=== PATIENT | male | born 1985 | race Caucasian/White ===

== ENCOUNTER 2023-06-08 18:39 | Emergency (ER) | payer BC, SELFPAY ==
[2023-06-08 18:47] VITALS: BP 127/87; PULSE 81; RESP 16; TEMP 36.8; O2SAT 99
--- NOTE | 2023-06-08 18:49 | ED.SKABFB ---
HPI - Skin/Abscess/Foreign Bdy General Chief complaint: Skin/Abscess/Foreign Body Stated complaint: Rash Time Seen by Provider: 06/08/23 18:49 Source: patient, RN notes reviewed and old records reviewed Mode of arrival: ambulatory Limitations: no limitations History of Present Illness HPI narrative: 37-year-old male presents to the [facility] with complaints of a rash for the last 1 and half weeks your kid has been using hot showers, used [id number] treatments with cream, aloe, Benadryl with minimal to no relief. Area to the medial left leg his now become red, warm. Related Data Home Medications Medication Instructions Recorded Confirmed loratadine 10 mg tablet (Claritin) 10 mg PO DAILY 06/08/23 06/08/23 Allergies Allergy/AdvReac Type Severity Reaction Status Date / Time acetaminophen [From Percocet] Allergy Rash Verified 06/08/23 18:55 codeine Allergy Rash Verified 06/08/23 18:55 oxycodone [From Percocet] Allergy Rash Verified 06/08/23 18:55 Review of Systems Review of Systems: All systems reviewed & are unremarkable except as noted in HPI and below Constitutional: Constitutional: Reports no additional constitutional complaints Eyes: Eyes: Reports no additional eye complaints ENT: Reports system reviewed and no additional complaints, except as documented Cardiovascular: Cardiovascular: Reports no additional cardiovascular complaints, Denies chest pain and Denies dyspnea Respiratory: Respiratory: Reports no additional respiratory complaints, Denies chest congestion, Denies cough and Denies dyspnea Gastrointestinal: Gastrointestinal: Reports no additional gastrointestinal complaints, Denies abdominal pain, Denies nausea and Denies vomiting Musculoskeletal: Musculoskeletal: Reports no additional musculoskeletal complaints Integumentary/Breasts: Skin/Breast: Reports as per HPI Neurologic: Reports system reviewed and no additional complaints, except as documented Psychiatric: Psychiatric: Reports no additional psychiatric complaints Allergic/Immunologic: Allergic/Immunologic: Reports no additional allergic/immunologic complaints PMFSH Comments At the time of my signature, I reviewed and agree with the nursing past medical, surgical, social, and family history. There is no relevant family history pertinent to the patient complaint. Exam Const: General: cooperative, healthy appearing, comfortable, no acute distress, well developed, alert and well nourished Nutritional Appearance: well nourished Orientation/consciousness: patient oriented x3 Limitations: no limitations HENMT: Head: normal to inspection Ears: hearing grossly normal bilaterally and external ears normal Face/Nose/Sinus: Normal external nose present, Normal nares present, Normal nasal mucous membranes and turbinates present and normal facial exam Face and sinus: normal facial exam Mouth: Yes Normal oral and palatal mucosa present, Yes lip normal and Yes moist mucous membranes Eyes: General: appearance normal, both eyes and all related structures Alignment and Position: alignment normal Periorbital: periorbital findings normal Pupils: Equal, round and reactive pupils present EOM: EOMs intact bilaterally Neck: Neck: normal visual inspection, full ROM, no lymphadenopathy and no meningeal signs Chest: Chest palpation & inspection: normal inspection of the chest Resp: Effort & Inspection: normal respiratory effort and able to speak in complete sentences Auscultation: clear to auscultation bilaterally, no crackles, no rales, no rhonchi and no wheezes Cardio: Rate: regular rate Rhythm: regular rhythm Back/Spine/Pelvis: Cervical Spine: cervical ROM normal Thoracic/Lumbar Spine: No thoracic spinal tenderness Skin: General skin exam: normal color and no rashes or lesions noted Lesions: no lesions Rashes: no rashes Wounds: no wounds Other: Left medial leg, rash, surrounding erythema, raised, indurated, concern for cellulitis Neur
== END 2023-06-08 19:10 | disposition home or self-care (01) ==
PROVIDERS: Emergency Provider Nurse Practitioner; PCP Emergency Medicine
DX: L25.5 Unspecified contact dermatitis due to plants, except food (principal); L03.116 Cellulitis of left lower limb
CPT/HCPCS: 99203; G0463

== ENCOUNTER 2023-11-14 00:23 | Day surgery (SDC) | payer BC, SELFPAY ==
--- NOTE | 2023-09-04 14:37 | SUR.PREOP ---
Report to the Outpatient Waiting Room, entrance under the green pavilion located off [facility], at time 0715 on date 09/12/23. Planned Procedure Time: 0915. Time changes happen often and if your time is changed the preop area will call you the afternoon before. - You and your visitor will be asked to self-screen and do not enter if you have any COVID symptoms. - A mask is optional within the hospital at this time. Patients may have clear liquids (water, carbonated beverages, clear teas, apple juice) until 3 hours prior to surgery with a maximum of 20 ounces. - No food from midnight until time of surgery - Infants may have breast milk until 4 hours before surgery, formula 6 hours prior to surgery. - Children will be allowed to drink immediately following surgery. If applicable, please bring a bottle or sippy cup to assist with drinking. Juice, water, soda, and popsicles are readily available. For infants on formula, please bring formula the day of surgery. Pacifiers are allowed. Take the following medications with a SIP of water the morning of surgery: N/A DO NOT STOP ANY OF YOUR OTHER PRESCRIPTION MEDICATIONS PRIOR TO SURGERY ?EXCEPT THE FOLLOWING Medications to discontinue per physician N/A Date to take last dose Please no make-up, nail hungarian, hairspray, perfume, deodorant, or body powder the day of surgery. No jewelry (including any body piercings) or valuables the day of surgery, leave them at home. Please take a shower or bath the night before, or the morning of, surgery with an antibacterial soap. Wear comfortable, loose fitting clothing. Children are encouraged to wear pajamas. - Jewelry must be removed prior to entering the operating room. Rings and piercings that are not removed may be cut off. - The hospital will not accept responsibility for valuables. - Please leave all valuables, including medications, at home the day of surgery. If you are going home after surgery, a licensed bus driver school must drive you home. - NO public transportation without another adult if you receive anesthesia. - We recommend that an adult stay with you for 24 hours following discharge. - We also recommend that you do not drive, make important decision, drink alcoholic beverages, or take any drugs that were not prescribed by your health care provider for at least 24 hours after your discharge time. For Pediatric surgeries, we recommend two adults accompany the child home. Follow any additional instructions given to you from your surgeon. If you or anyone in your household have experienced Covid symptoms in the past week, please notify your surgeon or the nurse liaison at the phone number below for possible testing. Telephone instructions given to HAMLET KHOURY and asked if any additional questions and then verbalized understanding. Patient advised to call surgeon office or pre surgery nurse liaison [phone] if any additional questions.
[2023-09-04 14:46] VITALS: BMI 29.4
--- NOTE | 2023-09-11 13:35 | WPDANESEPPF ---
Anes - Initial Pre Proc Eval Procedure: Operation Date: 09/12/23 09:15 Proposed Procedures p Bilateral Inferior Turbinate Reduction with Outfracture - Bud Bell MD s Endoscopic Assisted Septoplasty - Bud Bell MD Date/Time: 09/11/23 13:35 Surgeon: Bud Bell MD Pre Op Diagnosis: Septal Deviation, Turbinate Hypertrophy, (cont) Patient Data Age: 38 Gender: M Height: 1.78 m Weight: 93 kg Allergies Allergy/AdvReac Type Severity Reaction Status Date / Time codeine Allergy Nausea and Verified 09/04/23 14:27 Vomiting oxycodone [From Percocet] Allergy Nausea and Verified 09/04/23 14:27 Vomiting Home Medications Medication Instructions Recorded Confirmed Type loratadine 10 mg tablet (Claritin) 10 mg PO DAILY 06/08/23 09/04/23 History Results Review: All pre-operative results and documents have been reviewed as part of the pre-operative evaluation. COUNTS INCLUDE 234 BEDS AT THE [facility] Past Medical History Medical History (Updated 09/11/23 @ 13:35 by Umang Ramsey DO) PONV (postoperative nausea and vomiting) Surgical History Surgical History H/O hernia repair Hx of tonsillectomy Family History Family History Father Hypertension Mother Hypertension Grandparent Skin cancer Rectal cancer Social History Social History (Updated 07/06/23 @ 08:52 by Nat Kendrick CMA) Years smoked: 1 Smoking status: Current every day smoker Tobacco type: e-cigarettes/vaping Alcohol intake: current Drinks per week: 7 Substance use: current Substance use type: marijuana Lack of Transportation: YES Lack of Food: Never True Current Housing: I Have Housing Concerned About Future Housing: No Difficulty Paying Gas/Electric Bills: No Difficulty Paying for Meds: No Currently Unemployed: No Education: Bachelor's Degree Difficulty w/ Childcare or Family Care: No Living arrangements: with family Spiritual care concerns: No Anes - Eval Final PreProcedure Day of Procedure 09/11/23 13:35 Patient weight: overweight Heart: regular rate and rhythm Lungs: clear to auscultation Airway: Mallampati scale class II Neurological: alert and oriented Last oral intake: >/= 8 hours ASA classification: II Emergent: no Anesthetic plan: proceed Anesthesia type and monitoring: general GIVS and standard monitoring Results Review: All pre-operative results and documents have been reviewed as part of the pre-operative evaluation. Informed Consent: The patient's anesthetic plan and its attendant risks and benefits were discussed with the patient/family/POA. Questions were solicited and answers provided to the satisfaction of the patient/family/POA.
--- NOTE | 2023-09-11 17:59 | PM.IMHP ---
H&P: HPI History of Present Illness Date/Time: 09/11/23 17:59 Chief Complaint: nasal obstruction nasal congestion septal deviation turbinate hypertrophy Narrative: planned procedure Review of Systems Review of Systems: All systems reviewed & are unremarkable except as noted in HPI and below [facility] Past Medical History Medical History (Updated 09/11/23 @ 13:35 by Umang Ramsey DO) PONV (postoperative nausea and vomiting) Surgical History Surgical History H/O hernia repair Hx of tonsillectomy Family History Family History Father Hypertension Mother Hypertension Grandparent Skin cancer Rectal cancer Social History Social History (Updated 07/06/23 @ 08:52 by Nat Kendrick CMA) Years smoked: 1 Smoking status: Current every day smoker Tobacco type: e-cigarettes/vaping Alcohol intake: current Drinks per week: 7 Substance use: current Substance use type: marijuana Lack of Transportation: YES Lack of Food: Never True Current Housing: I Have Housing Concerned About Future Housing: No Difficulty Paying Gas/Electric Bills: No Difficulty Paying for Meds: No Currently Unemployed: No Education: Bachelor's Degree Difficulty w/ Childcare or Family Care: No Living arrangements: with family Spiritual care concerns: No Meds Home Medications and Allergies Home Medications Medication Instructions Recorded Confirmed Type loratadine 10 mg tablet (Claritin) 10 mg PO DAILY 06/08/23 09/04/23 History Allergies Allergy/AdvReac Type Severity Reaction Status Date / Time codeine AdvReac Nausea and Verified 09/11/23 13:40 Vomiting oxycodone [From Percocet] AdvReac Nausea and Verified 09/11/23 13:40 Vomiting Exam Narrative: septal deviation turbinate hypertrophy Assessment and Plan Assessment and plan (1) Nasal obstruction: Code(s): J34.89 - Other specified disorders of nose and nasal sinuses Status: Acute Assessment and Plan: ? plan, OR for endoscopic assisted septoplasty turbinate reduction with outfracture bilaterally inferior. Risks were discussed including bleeding infection postoperative infection need for time off work cosmetic deformity postoperative bleeding postoperative infection inherent risk of narcotic use.? Septal perforation.? CSF leak brain brain damage change in vision blindness.? Pre hypertrophy of the turbinates.? Scar tissue.? Damage to any structure of the clavicles by myself damage to any structure during the induction and remains of anesthesia including vocal cord paralysis. (2) Hypertrophy of both inferior nasal turbinates: Code(s): J34.3 - Hypertrophy of nasal turbinates Status: Acute (3) Deviated septum: Code(s): J34.2 - Deviated nasal septum Status: Acute
--- NOTE | 2023-09-12 07:21 | WPDHPUPDATE1 ---
History and Physical Update Update Date/Time: 09/12/23 07:21 Case cancelled, patient called
[2023-11-06 12:19] VITALS: BMI 29.4
--- NOTE | 2023-11-06 12:22 | PC.NURSE ---
Report to the Outpatient Waiting Room, entrance under the green pavilion located off [facility], at time 0800 on date 11/14/23. Planned Procedure Time: 1000. Time changes happen often and if your time is changed the preop area will call you the afternoon before. - You and your visitor will be asked to self-screen and do not enter if you have any COVID symptoms. - A mask is optional within the hospital at this time. Patients may have clear liquids (water, carbonated beverages, clear teas, apple juice) until 3 hours prior to surgery with a maximum of 20 ounces. - No food from midnight until time of surgery Take the following medications with a SIP of water the morning of surgery: N/A DO NOT STOP ANY OF YOUR OTHER PRESCRIPTION MEDICATIONS PRIOR TO SURGERY ?EXCEPT THE FOLLOWING Medications to discontinue per physician: N/A Date to take last dose: N/A Please no make-up, nail bengali, hairspray, perfume, deodorant, or body powder the day of surgery. No jewelry (including any body piercings) or valuables the day of surgery, leave them at home. Please take a shower or bath the night before, or the morning of, surgery with an antibacterial soap. Wear comfortable, loose fitting clothing. - Jewelry must be removed prior to entering the operating room. Rings and piercings that are not removed may be cut off. - The hospital will not accept responsibility for valuables. - Please leave all valuables, including medications, at home the day of surgery. If you are going home after surgery, a licensed pizza driver must drive you home. - NO public transportation without another adult if you receive anesthesia. - We recommend that an adult stay with you for 24 hours following discharge. - We also recommend that you do not drive, make important decision, drink alcoholic beverages, or take any drugs that were not prescribed by your health care provider for at least 24 hours after your discharge time. Follow any additional instructions given to you from your surgeon. If you or anyone in your household have experienced Covid symptoms in the past week, please notify your surgeon or the nurse liaison at the phone number below for possible testing. Telephone instructions given to PT Ramón KHOURY and asked if any additional questions and then verbalized understanding. Patient advised to call surgeon office or pre surgery nurse liaison [phone] if any additional questions.
--- NOTE | 2023-11-13 09:09 | PM.IMHP ---
H&P: HPI History of Present Illness Date/Time: 11/13/23 09:09 Chief Complaint: nasal obstruction nasal congestion septal deviation turbinate hypertrophy Narrative: planned surgical procedure Review of Systems Review of Systems: All systems reviewed & are unremarkable except as noted in HPI and below [facility] Past Medical History Medical History (Updated 09/11/23 @ 13:35 by Umang Ramsey DO) PONV (postoperative nausea and vomiting) Surgical History Surgical History H/O hernia repair Hx of tonsillectomy Family History Family History Father Hypertension Mother Hypertension Grandparent Skin cancer Rectal cancer Social History Social History (Updated 07/06/23 @ 08:52 by Nat Kendrick CMA) Years smoked: 1 Smoking status: Current every day smoker Tobacco type: e-cigarettes/vaping Alcohol intake: current Drinks per week: 7 Substance use: current Substance use type: marijuana Lack of Transportation: YES Lack of Food: Never True Current Housing: I Have Housing Concerned About Future Housing: No Difficulty Paying Gas/Electric Bills: No Difficulty Paying for Meds: No Currently Unemployed: No Education: Bachelor's Degree Difficulty w/ Childcare or Family Care: No Living arrangements: with family Spiritual care concerns: No Meds Home Medications and Allergies Home Medications Medication Instructions Recorded Confirmed Type No Home Medications 11/06/23 11/06/23 History Allergies Allergy/AdvReac Type Severity Reaction Status Date / Time codeine AdvReac Nausea and Verified 11/06/23 12:16 Vomiting oxycodone [From Percocet] AdvReac Nausea and Verified 11/06/23 12:16 Vomiting Exam Narrative: septal deviation turbinate hypertrophy Assessment and Plan Assessment and plan (1) Nasal obstruction: Code(s): J34.89 - Other specified disorders of nose and nasal sinuses Status: Acute Assessment and Plan: ?plan, OR for endoscopic assisted septoplasty turbinate reduction with outfracture bilaterally inferior. Risks were discussed including bleeding infection postoperative infection need for time off work cosmetic deformity postoperative bleeding postoperative infection inherent risk of narcotic use.? Septal perforation.? CSF leak brain brain damage change in vision blindness.? Pre hypertrophy of the turbinates.? Scar tissue.? Damage to any structure of the clavicles by myself damage to any structure during the induction and remains of anesthesia including vocal cord paralysis. (2) Hypertrophy of both inferior nasal turbinates: Code(s): J34.3 - Hypertrophy of nasal turbinates Status: Acute (3) Deviated septum: Code(s): J34.2 - Deviated nasal septum Status: Acute
--- NOTE | 2023-11-13 14:22 | P.PNAN_ITS ---
Anes - Initial Pre Proc Eval Procedure: Operation Date: 11/14/23 10:00 Proposed Procedures p Bilateral Inferior Turbinate Reduction with Outfracture - Bud Bell MD s Endoscopic Assisted Septoplasty - Bud Bell MD Date/Time: 11/13/23 14:22 Surgeon: Bud Bell MD Pre Op Diagnosis: Septal Deviation, Turbinate Hypertrophy, (cont) Patient Data Age: 38 Gender: M Height: 1.78 m Weight: 93 kg Allergies Allergy/AdvReac Type Severity Reaction Status Date / Time codeine AdvReac Nausea and Verified 11/14/23 08:28 Vomiting oxycodone [From Percocet] AdvReac Nausea and Verified 11/14/23 08:28 Vomiting Home Medications Medication Instructions Recorded Confirmed Type No Home Medications 11/06/23 11/14/23 History Patient hx anesthesia problems: post op nausea/vomiting Family hx anesthesia problems: none Results Review: All pre-operative results and documents have been reviewed as part of the pre- operative evaluation. [facility] Past Medical History Medical History (Updated 09/11/23 @ 13:35 by Umang Ramsey DO) PONV (postoperative nausea and vomiting) Surgical History Surgical History H/O hernia repair Hx of tonsillectomy Family History Family History Father Hypertension Mother Hypertension Grandparent Skin cancer Rectal cancer Social History Social History (Updated 07/06/23 @ 08:52 by Nat Kendrick CMA) Years smoked: 1 Smoking status: Current every day smoker Tobacco type: e-cigarettes/vaping Alcohol intake: current Drinks per week: 7 Substance use: current Substance use type: marijuana Lack of Transportation: YES Lack of Food: Never True Current Housing: I Have Housing Concerned About Future Housing: No Difficulty Paying Gas/Electric Bills: No Difficulty Paying for Meds: No Currently Unemployed: No Education: Bachelor's Degree Difficulty w/ Childcare or Family Care: No Living arrangements: with family Spiritual care concerns: No Anes - Eval Final PreProcedure Day of Procedure 11/13/23 14:22 Patient weight: overweight Heart: regular rate and rhythm Lungs: clear to auscultation Airway: Mallampati scale class III Neurological: alert and oriented Last oral intake: >/= 8 hours ASA classification: III Emergent: no Anesthetic plan: proceed Anesthesia type and monitoring: general ETT and standard monitoring Results Review: All pre-operative results and documents have been reviewed as part of the pre- operative evaluation. Informed Consent: The patient's anesthetic plan and its attendant risks and benefits were discussed with the patient/family/POA. Questions were solicited and answers provided to the satisfaction of the patient/family/POA.
[2023-11-14] VITALS (8 sets, daily range): BP systolic 110–139; BP diastolic 57–88; PULSE 63–109; RESP 13–16; TEMP 36.3–36.6; O2SAT 97–98
--- NOTE | 2023-11-14 07:15 | WPDHPUPDATE1 ---
History and Physical Update Update Date/Time: 11/14/23 07:15 History and Physical has been reviewed, including an updated exam of the patient. There are NO changes in the patient's condition. Risks, benefits, and alternatives have been discussed and questions answered. Patient agrees to proceed with procedure.
[2023-11-14] MEDS: ACETAMINOPHEN 500 MG TABLET 1000 MG PO (08:21)
[2023-11-14] MEDS: LACTATED RINGERS 1,000 ML 30 ML IV CONT ×2 (08:23→11:53)
[2023-11-14] MEDS: SCOPOLAMINE 1 MG PATCH 1 PATCH TRANSDERM (09:29)
[2023-11-14] MEDS: ceFAZolin 2 GM/D5W 50 ML 2 GM/50 ML BAG IVPB (09:55)
[2023-11-14] MEDS: OXYMETAZOLINE HCL 0.05% NAS 15 ML BTL (*BKC) 1 SPRAY NASAL (10:26)
[2023-11-14] MEDS: LIDO 1%/EPINEPHRINE 1:100,000 50 ML VIAL INFILTRATE (10:26)
--- NOTE | 2023-11-14 12:04 | W.PM.PROC2 ---
Procedure Note - Detailed Date of Procedure 11/14/23 Pre-op Diagnosis Septal Deviation, Turbinate Hypertrophy, (cont) Post-op Diagnosis Same Procedure Performed Endoscopic assisted septoplasty inferior turbinate outfracture Surgeon Bud Bell MD Anesthesia General Indications see above Findings a severely deviated septum both ways it was S shaped but multiple abscesses. Bony hypertrophy of the inferior turbinates no real soft tissue edema which was nice enough to perform reduction just outfracture Description of Procedure patient identified consent verified preop. Patient brought to the operating. Time-out performed. General anesthesia induced endotracheal tube secured airway patient prepped draped position procedure confirmed 2nd time-out performed. Afrin-soaked pledgets placed for 5 minutes then removed. 0 degree endoscope utilized. Total and cc 1% lidocaine 1 100,000 parts epinephrine injected in the bilateral nasal septum. [place] incision made left side left nasal septal flap elevated with 7 Mongolian suction. Osteotome utilized to cross over right nasal septal flap elevated. Small perforation on the right side. Deviated septum removed Zumbrota Ferraro forceps Frederick forceps and osteotome with mallet. At the end of the case there was bleeding from the inferior floor with artery runs along the palate this was stopped with dry Afrin pledgets and Surgiflo. Septum was then copiously irrigated [place] incision closed with 3 interrupted 5 0 fast gut sutures. Patient had bleeding from a right vein in Terril box region this was cauterized with bipolar electrocautery setting of 5. Ointment was then placed against the septum Brooks splints placed sutured anteriorly using a 3-0 mattress nylon suture. Turbinates were then outfractured as there is no soft tissue. This was bilateral. Blood loss 25 cc. I performed all dictated portions of procedure. Care the patient given Anesthesiology. Patient was taken to PACU. No immediate complications. Estimated Blood Loss 25 Drains No Packing No Pathology None sent Complications No immediate complications Condition Stable Disposition PACU [facility] Billing Surgery - Charge Forward: Surgery Billing
--- NOTE | 2023-11-14 12:17 | SUR.PHASEI ---
1215 - dr. argueta at bedside talking with patient
== END 2023-11-14 13:45 | disposition home or self-care (01) ==
PROVIDERS: PCP Emergency Medicine; Visit Provider Otolaryngology
PROC: (CPT 30520; principal; 2023-11-14 10:00)
PROC: (CPT 30520; 2023-11-14 10:00)
DX: J34.3 Hypertrophy of nasal turbinates (principal); J34.2 Deviated nasal septum; J34.89 Other specified disorders of nose and nasal sinuses; F12.90 Cannabis use, unspecified, uncomplicated; F17.290 Nicotine dependence, other tobacco product, uncomplicated
CPT/HCPCS: 30520; 30140; A9270; J0330; J0690; J1100; J1596; J2250; J2371; J2405; J2704; J3010; J7050; J7120

== ENCOUNTER 2024-07-29 08:44 | Emergency (ER) | payer BC, SELFPAY ==
[2024-07-29 08:47] VITALS: BP 126/76; PULSE 64; RESP 19; TEMP 36.8; O2SAT 99
--- NOTE | 2024-07-29 08:47 | ED.MALEGU ---
HPI - Male Genitourinary General Chief complaint: Urogenital-Male Stated complaint: Urination Problem Time Seen by Provider: 07/29/24 08:50 Source: patient Mode of arrival: ambulatory Limitations: no limitations History of Present Illness HPI Narrative: Grzegorz is a 39-year-old male patient presenting to the clinic today with complaints urinary frequency and pressure over the bladder this been going on for approximately 3 days. States no known fever, chills, body aches, abdominal pain, or back pain. He denies any penile discharge or any concern for sexually transmitted infections. Reports having a good strong stream with urination. He denies any testicle pain. No history of diabetes or BPH. Denies any increased thirst or hunger. Related Data Home Medications Medication Instructions Recorded Confirmed No Home Medications 01/10/24 07/29/24 Allergies Allergy/AdvReac Type Severity Reaction Status Date / Time codeine AdvReac Nausea and Verified 07/29/24 08:59 Vomiting oxycodone [From Percocet] AdvReac Nausea and Verified 07/29/24 08:59 Vomiting Review of Systems Review of Systems: Pertinent positives per HPI. Patient denies any fever, chills, rash, headache, visual changes, dizziness, cough, runny nose, sore throat, shortness of breath, chest pain, palpitations, nausea, vomiting, diarrhea, constipation, abdominal pain PMFSH Past Medical History Medical History PONV (postoperative nausea and vomiting) Surgical History Surgical History H/O hernia repair Hx of tonsillectomy Family History Family History Father Hypertension Mother Hypertension Grandparent Skin cancer Rectal cancer Social History Social History Smoking status: Never smoker Alcohol intake: current Drinks per week: 7 Alcohol use details: 1 drink/daily Substance use: current Substance use type: marijuana Other substance usage details: daily Lack of Transportation: YES Lack of Food: Never True Current Housing: I Have Housing Concerned About Future Housing: No Difficulty Paying Gas/Electric Bills: No Difficulty Paying for Meds: No Currently Unemployed: No Education: Bachelor's Degree Difficulty w/ Childcare or Family Care: No Living arrangements: with family Spiritual care concerns: No Comments At the time of my signature, I reviewed and agree with the nursing past medical, surgical, social, and family history. There is no relevant family history pertinent to the patient complaint. Exam Narrative: General: Well-developed, well nourished, in no apparent distress. Head: Normocephalic, atraumatic. Cardio: Regular rate and rhythm, s1 and s2 normal, no murmur appreciated. Resp: Clear to auscultation bilaterally, no rhonchi, rales, wheezing or rubs. Abdomen: Soft, pliable, bowel sounds present in all quadrants, non-tender to palpation, no organomegly, no CVAT tenderness. : Deferred Course Course Emergency Course: Portions of this record may have been created with voice recognition software. Level of Care: Express Care Visit Vital Signs Vital signs: Vital signs reviewed MDM - Male Genitourinary MDM Narrative Medical decision making narrative: At the time of visit patient is resting comfortably on the exam table. Patient appears to be nontoxic. Labs: Urinalysis negative for any sign of infection, blood, protein, or ketones. Plan: I suspect patient has urinary frequency with supra pubic pressure. Urinalysis is negative. Differentials include BPH, prostatitis, cystitis, or diabetes. Recommend following up with his PCP for further evaluation of symptoms persist this week. Discussed decreasing caffeine intake to see if this helps alleviat
== END 2024-07-29 09:40 | disposition home or self-care (01) ==
PROVIDERS: Emergency Provider Nurse Practitioner Family; PCP Emergency Medicine
DX: R35.0 Frequency of micturition (principal); R10.30 Lower abdominal pain, unspecified
CPT/HCPCS: 81003; 99211; G0463